=== PATIENT | female | born 1975 | race Caucasian/White ===

== ENCOUNTER 2021-06-14 16:01 | Emergency (ER) | payer OTHER ==
[~2021-06-14] VITALS: Ht 152.4 cm; Wt 60.7 kg
[2021-06-14] MEDS ORDERED: VASCEPA1 GM PO (20:07)
[2021-06-14] MEDS ORDERED: BASAGLAR K100 UNIT/1 SUB-Q (20:08)
[2021-06-14] MEDS ORDERED: NOVOLOG FL100 UNIT/1 SUB-Q (20:08)
[2021-06-14] MEDS ORDERED: LYRICA100 MG PO (20:09)
[2021-06-14] MEDS ORDERED: CHOLESTOFF COM1 EACH PO (20:09)
[2021-06-14] MEDS ORDERED: VITAMIN D21250 MCG PO (20:10)
[2021-06-14] MEDS ORDERED: FENOFIBRATE145 MG PO (20:10)
[2021-06-14] MEDS ORDERED: TRAZODONE HCL50 MG PO (20:10)
[2021-06-14] MEDS ORDERED: APPLE CIDER VI300 MG PO (20:11)
[2021-06-14] MEDS ORDERED: CENTRUM WOMEN1 EACH PO (20:11)
[2021-06-14] MEDS ORDERED: CITRACAL-D3 MA1 EACH PO (20:12)
[2021-06-14] MEDS ORDERED: LIDOCAINE1 EACH TD (20:13)
[2021-06-14] MEDS ORDERED: PEPCID20 MG PO (21:53)
[2021-06-14] MEDS ORDERED: MAALOX ADVANCE1 EACH PO (21:53)
--- NOTE | 2021-06-17 17:09 | EKG ---
[facility] [address] [facility] [place] [address] Signed Normal sinus rhythm Normal ECG No previous ECGs available Confirmed by LUIZ GOODE MD ([id number] on 06/17/2021 5:08:50 PM Electronically Signed By: LUIZ GOODE MD 06/17/21 1709 PATIENT NAME: LUANNE BUCHANAN Electrocardiogram DATE OF : 73 PHYSICIAN: LUIZ GOODE MD REPORT #: [id number] REPORT IS CONFIDENTIAL AND NOT TO BE RELEASED WITHOUT AUTHORIZATION
== END 2021-06-14 22:03 | disposition home or self-care (01) ==
LOC: ED 16:01
DX: R10.13 Epigastric pain (principal); R10.11 Right upper quadrant pain; R21 Rash and other nonspecific skin eruption; E11.9 Type 2 diabetes mellitus without complications; Z88.8 Allergy status to other drugs, medicaments and biological substances; Z79.899 Other long term (current) drug therapy; Z79.4 Long term (current) use of insulin; R74.01 Elevation of levels of liver transaminase levels
CPT/HCPCS: 36415; 80053; 83690; 84484; 85025; 93005; 93010; 96374; 96375; 99284-25; J1200; J1885; J7121